=== PATIENT | male | born 1980 | race Caucasian/White ===

== ENCOUNTER 2016-04-07 19:15 | Emergency (ER) | payer SELFPAY ==
[2016-04-07 20:18] VITALS: BP 121/69
--- NOTE | 2016-04-07 20:48 | UC ---
Back Pain HPI - HPI Summary HPI Summary: fell on ice 3 weeks ago. [place] mild discomfort in back afterwards, gradually worsening over the next 2 weeks. Now very severe, can hardly get out of bed, walking with cane. Has had similar pain in past, but not so severe. He is 330 pounds. No radiation of pain. Hurts to bend, twist. Did feel pretty good a few days ago, he thinks he overdid it and now pain is excruciating. Never had an XRay. Has no family sociologist, [facility]. wants him tested for DM as it runs in his family. - History of Current Complaint Chief Complaint: UCBackPain Stated Complaint: BACK PAIN Time Seen by Provider: 04/07/16 20:20 - Allergies/Home Medications Allergies/Adverse Reactions: Allergies Allergy/AdvReac Type Severity Reaction Status Date / Time No Known Allergies Allergy Verified 04/07/16 20:18 PMH/Surg Hx/FS Hx/Imm Hx - Additional Past Medical History Additional PMH: history of intermittent back pain Previously Healthy: Yes - Surgical History Surgical History: None - Family History Known Family History: Positive: Diabetes - Social History Occupation: Unemployed Lives: With Family Alcohol Use: Occasionally Substance Use Type: None Smoking Status (MU): Never Smoked Tobacco Review of Systems Constitutional: Negative Skin: Negative Eyes: Negative ENT: Negative Respiratory: Negative Cardiovascular: Negative Gastrointestinal: Negative Genitourinary: Negative Motor: Negative Neurovascular: Negative Musculoskeletal: Arthralgia, Decreased ROM, Myalgia Neurological: Negative Psychological: Negative All Other Systems Reviewed And Are Negative: Yes Physical Exam Triage Information Reviewed: Yes Appearance: Well-Nourished, Pain Distress - walking very slowly and stiffly, can hardly sit up from stretcher, appears to have a lot of pain., Obese Vital Signs: Initial Vital Signs Temp 98.3 F 04/07/16 20:11 Pulse 56 04/07/16 20:11 Resp 18 04/07/16 20:11 BP 121/69 04/07/16 20:11 Pulse Ox 97 04/07/16 20:11 Eye Exam: Normal ENT Exam: Normal Neck exam: Normal Neck: Positive: Supple, Nontender Respiratory Exam: Normal Cardiovascular Exam: Normal Abdomen Description: Positive: Nontender Musculoskeletal Exam: Other - mild tenderness to palpation left lumbar musculature. Some midline lumbar tendernes on palpation. Any twisting movement is very painful. Hurts to lift either leg. Neurological Exam: Normal Psychological Exam: Normal Skin Exam: Normal Diagnostics - Laboratory Diagnostic Studies Completed/Ordered: L-S spine Xray: DJD Back Pain Course/Dx - Differential Dx/Diagnosis Provider Diagnoses: low back strain Discharge - Discharge Plan Condition: Stable Disposition: HOME Prescriptions: Carisoprodol TAB* [Soma TAB*] 350 mg PO TID PRN #30 tab MDD 3 tab PRN Reason: back muscle spasms traMADol TAB* [Ultram*] 1 - 2 tab PO Q6HR PRN #30 tab MDD 6 tab PRN Reason: back pain Patient Education Materials: Low Back Strain (ED), Lower Back Exercises (ED) Referrals: No Primary Care Phys,NOPCP [Primary Care Provider] -
--- NOTE | 2016-04-07 21:18 | RAD ---
INDICATION: Back pain COMPARISON: None TECHNIQUE: Routine PA, lateral, and oblique imaging was performed . FINDINGS: Bones: There are no acute bony findings. There are arthritic changes with multilevel degenerative bony spur formation and mild disc space narrowing with endplate sclerosis and facet arthropathy at L5-S1. Alignment: Normal Disc spaces: The remaining disc spaces are well-maintained Soft tissues: There are no soft tissue abnormalities. IMPRESSION: Mild multilevel degenerative spurring with moderate degenerative disc disease L5-S1.
== END 2016-04-07 21:40 | disposition home or self-care (01) ==
LOC: UCEAST 19:15
DX: S39.012A Strain of muscle, fascia and tendon of lower back, initial encounter (principal); W00.0XXA Fall on same level due to ice and snow, initial encounter; Y93.9 Activity, unspecified; Y92.9 Unspecified place or not applicable; E66.9 Obesity, unspecified; Z83.3 Family history of diabetes mellitus
CPT/HCPCS: 72110; 99202; G0463